=== PATIENT | male | born 1950 | race Caucasian/White ===

== ENCOUNTER 2020-06-18 20:54 | Inpatient (IN) | payer MEDICARE ==
[~2020-06-18] VITALS: Ht 167.6 cm; Wt 72.6 kg
[2020-06-19 05:15] LABS: HEMOGLOBIN 7.8 gm/dl (14.0-17.5); RED BLOOD COUNT 2.9 M/UL (4.20-5.50)
[2020-06-19 12:59] LABS: HEMOGLOBIN 7.7 gm/dl (14.0-17.5)
--- NOTE | 2020-06-19 20:22 | NUR ---
ASSESSMENT COMPLETE. LEFT LOWER EXTREMITY WOUND OPEN TO AIR . PREVIOUSLY APPLIED STERI-STRIPS SATURATED WITH BLOOD. DRESSING REAPPLIED TO RIGHT LOWER LEG , WOUND COVERED WITH NON-ADHERING DRESSING ANG WRAPPED WITH CLEAN GAUZE. LEFT FOOT FOOT WOUND OPEN TO AIR . AREA COVERED WITH NON-ADHERING DRESSING AND SECURED WITH CLEAN GAUZE. PATIENT REMAINS UNCOOPERATIVE ,PULLING AT MEDICAL MONITORING EQUPMENT. SITTER AT BEDSIDE . TITRATING LEVOPHED DRIP TO MAINTAIN MAP OF 60.
[2020-06-19 21:31] LABS: HEMOGLOBIN 6.7 gm/dl (14.0-17.5)
--- NOTE | 2020-06-19 23:58 | NUR ---
SPOKE WITH Lisa CHEO , WHO WAS LISTED SALES BRANCH MANAGER. STATES HE IS UNAWARE OF ANY FAMILY AND KNOW NOTHING ABOUT SPECIFIC MEDICAL BACKGROUND.
[2020-06-20 04:40] LABS: HEMOGLOBIN 8.6 gm/dl (14.0-17.5); RED BLOOD COUNT 3.17 M/UL (4.20-5.50); WHITE BLOOD COUNT 9.9 K/UL (4.5-11.0)
[2020-06-20 13:15] LABS: HEMOGLOBIN 8.7 gm/dl (14.0-17.5)
--- NOTE | 2020-06-21 01:08 | NUR ---
MIDNIGHT BMP RESULTED . SODIUM IS 143. NO CHANGE IN IVF REQUIRED PER ORDER.
[2020-06-21 05:18] LABS: HEMOGLOBIN 9.1 gm/dl (14.0-17.5); RED BLOOD COUNT 3.31 M/UL (4.20-5.50); WHITE BLOOD COUNT 8.2 K/UL (4.5-11.0)
[2020-06-22 05:34] LABS: HEMOGLOBIN 7.3 gm/dl (14.0-17.5)
[2020-06-22 05:47] LABS: RED BLOOD COUNT 2.66 M/UL (4.20-5.50); WHITE BLOOD COUNT 5.7 K/UL (4.5-11.0)
[2020-06-22 22:56] LABS: HEMOGLOBIN 7.3 gm/dl (14.0-17.5)
--- NOTE | 2020-06-23 03:17 | NUR ---
TUBE FEEDS TURNED OFF DUE TO THE PATIENT HAVING MULTIPLE EPISODES OF EMESIS. WILL CONTINUE TO MONITOR.
[2020-06-23 04:07] LABS: RED BLOOD COUNT 2.86 M/UL (4.20-5.50); WHITE BLOOD COUNT 5.3 K/UL (4.5-11.0)
[2020-06-24 04:04] LABS: HEMOGLOBIN 7.4 gm/dl (14.0-17.5); RED BLOOD COUNT 2.8 M/UL (4.20-5.50); WHITE BLOOD COUNT 4.7 K/UL (4.5-11.0)
[2020-06-25 04:05] LABS: WHITE BLOOD COUNT 4.8 K/UL (4.5-11.0)
[2020-06-25 04:20] LABS: HEMOGLOBIN 9.8 gm/dl (14.0-17.5); RED BLOOD COUNT 3.42 M/UL (4.20-5.50)
[2020-06-25 04:27] LABS: BUN/CREATININE RATIO 15 (0-10)
--- NOTE | 2020-06-25 13:49 | NUR ---
CHANGED/CLEANED CENTRAL LINE DRESSING. CHANGED/CLEANED BIATERAL LEG DRESSINGS.
[2020-06-26 04:00] LABS: HEMOGLOBIN 9.1 gm/dl (14.0-17.5); RED BLOOD COUNT 3.25 M/UL (4.20-5.50); WHITE BLOOD COUNT 4.7 K/UL (4.5-11.0)
[2020-06-26 04:30] LABS: BUN/CREATININE RATIO 12 (0-10)
--- NOTE | 2020-06-26 18:26 | NUR ---
DRESSING CHANGE DONGE BILATERALLY WITH SILVADEEN AND ABD PADS AND CURLEX
[2020-06-27 05:39] LABS: HEMOGLOBIN 8.9 gm/dl (14.0-17.5); RED BLOOD COUNT 3.1 M/UL (4.20-5.50); WHITE BLOOD COUNT 4.8 K/UL (4.5-11.0)
[2020-06-27 05:56] LABS: BUN/CREATININE RATIO 10 (0-10)
--- NOTE | 2020-06-27 18:34 | NUR ---
PATIENT HAD BP OF150/100 DR. JONES NOTIFIED AND STATED SHE WOULD PUT IN SOMETHING FOR BERTA DICKSON.
[2020-06-28 07:06] LABS: HEMOGLOBIN 8.6 gm/dl (14.0-17.5); RED BLOOD COUNT 2.99 M/UL (4.20-5.50); WHITE BLOOD COUNT 4.3 K/UL (4.5-11.0)
--- NOTE | 2020-06-28 07:26 | NUR ---
SITTER FOR PATIENT DC LAST NIGHT. CALLED THIS MORNING TO HOUSE AND REQUESTED SITTER. HOUSE SAID SITTER SAID PATIENT DIDN'T NEED SITTER AND THEY WOULD PASS MESSAGE ALONG TO DAY SHIFT SENIOR SECURITY ARCHITECT THAT NURSE HAD REQUESTED A SITTER FOR DAYSHIFT.
[2020-06-28 07:30] LABS: BUN/CREATININE RATIO 10 (0-10)
--- NOTE | 2020-06-28 19:49 | NUR ---
DRESSING CHANGE DONE FOR IJ AND LEGS. TWO TEGADERMS WITH ANTI BACTERIAL PATCHES AND CHLORHEXADINE USED ON IJ. NON ANDHERENT PADS AND SILVADEEN APPLIED AND HELD IN PLACE WITH GAUZE AND TAPE. PATIENT TOLERATED WELL.
--- NOTE | 2020-06-28 19:51 | NUR ---
TALHA HAS DOBHOFF TUBE INSERTED AND CONTINUOUS FEEDING AT 5. PATIENT HAD NOT TOLERATED AN INCREASE AND HAD HAD A RESIDUAL OF 35. THE PATIENT TOLERATED THE TUBE FEEDING DURING MY SHIFT AT 5, PATIENTS RATE WAS INCREASED BY 10 AT 16:30 UP TO 15 PER ORDER. INFORMATION WAS PASSED ALONG IN REPORT TO TERRESTRIAL ECOLOGIST.
[2020-06-29 05:46] LABS: BUN/CREATININE RATIO 6 (0-10)
[2020-06-29 14:15] LABS: VITAMIN E(ALPHA TOCOPHEROL) 3.4 mg/L (9.0-29.0); VITAMIN E(GAMMA TOCOPHEROL) 0.2 mg/L (0.5-4.9)
[2020-06-30 03:50] LABS: BUN/CREATININE RATIO 4 (0-10)
[2020-07-01 04:07] LABS: BUN/CREATININE RATIO 5 (0-10)
--- NOTE | 2020-07-01 17:29 | NUR ---
PATIENT NOTED TO PULL OUT RECTAL TUBE AT THIS TIME. SHARYN AWARE. SHE STATES THAT IT IS FINE TO LEAVE OUT AT THIS TIME.
--- NOTE | 2020-07-02 00:47 | NUR ---
234 WENT TO MY HOURLY ROUNDS ON PATIENT AND FOUND THE PATIENT IN THE FLOOR. ASSESSED PATIENT FOR ANY NEW INJURIES, NONE NOTED. ASKED THE PATIENT IF HE HURT ANYWHERE, THE PATIENT STATED NO. CENTRAL LINE NOTED TO BE OUT, APPLIED PRESSURE DRESSING. 2349 NOTIFIED MARIZA DISPATCHER CLERK OF FALL. [address] FINNEGAN OF FALL. DR FINNEGAN STATED "NO NEW ORDERS FOR NOW, WE WILL KEEP A CLOSE EYE ON HIM THOUGH AND MONITOR HIM." 0000 GOT THE PATIENT BACK INTO BED, CLEANED HIM UP, PUT A STRIP ALARM UNDER HIM, BED ALARM TURNED ON, YELLOW GOWN AND SOCKS APPLIED. SITTER IS NOW AT BEDSIDE FOR 1:1 MONITORING.
[2020-07-02 04:59] LABS: HEMOGLOBIN 9.3 gm/dl (14.0-17.5); RED BLOOD COUNT 3.15 M/UL (4.20-5.50); WHITE BLOOD COUNT 5.2 K/UL (4.5-11.0)
[2020-07-02 05:22] LABS: BUN/CREATININE RATIO 4 (0-10)
--- NOTE | 2020-07-02 14:36 | NUR ---
PATIENT YELLS OUT REPEATEDLY WHILE HE IS AWAKE. HE SPEECH IS GARBLED BUT HE DOESN'T SEEM TO BE CONFUSED ABOUT WHAT IS GOING ON AND HE IS CONVERSATIONALLY APPROPRIATE. HE 'PICKS' AT ALL OF HIS LINES AND WHEN I ROUNDED THIS AM HE HAD CHEWED THROUGH OR BROKEN HIS IV TUBING AND TIED HIS DOBHOFF IN A KNOT. WE CHANGED THE IV TUBING AND FIXED THE DOBHOFF TUBING AND ARE CLOSELY MONITORING PATIENT WHILE PREDICTING HIS NEEDS TO AVOID ANY FURTHER ISSUES.
--- NOTE | 2020-07-03 04:30 | NUR ---
PATIENT NOW HAS A SITTER!!!
--- NOTE | 2020-07-03 04:30 | NUR ---
AT 0315, FOUND PATIENT WITH IV LINE WRAPPED AROUND HIS WRIST. HE HAD BIT THROUGH THE TUBING. DAMAGED TUBING DISCARDED AND REMAINING SL FLUSHED EASILY WITH 0 S/S OF INFILTRTION NOTED. SL WRAPPED WITH CLOVIS. UPON RETURNING TO THE ROOM AT 0325, THE PATIENT WAS FOUND TURNED SIDEWAYS IN THE BED WITH HIS FEET ON THE IV PUMP, ATTEMPTING TO PULL THE TUBE FEED TUBING FROM THE [place]. WHILE TRYING TO HAVE THE PATIENT RELEASE THE TUBING, IT BROKE FROM THE MACHINE. CALLED FOR SENIOR POLICY ADVISOR TO SIT WITH PATIENT. WHILE WAITING FOR SENIOR POLICY ADVISOR, THE PATIENT IS FLAILING HIS ARMS AND LEGS AND THEN PROCEEDS TO GRAB HIS SL, JERK IT OUT OF HIS ARM AND THROW IT IN THE FLOOR. SENIOR POLICY ADVISOR IN ROOM WITH PATIENT AND THIS RN CALLING THE RECREATIONAL LEADER FOR HELP!
--- NOTE | 2020-07-04 13:30 | NUR ---
TUBE FEEDING ADJUSTED TO 45 ML/HR, TOLERATES WELL.
[2020-07-05 11:23] LABS: BUN/CREATININE RATIO 4 (0-10)
[2020-07-06 06:49] LABS: HEMOGLOBIN 8.3 gm/dl (14.0-17.5); RED BLOOD COUNT 2.82 M/UL (4.20-5.50)
[2020-07-06 07:16] LABS: BUN/CREATININE RATIO 5 (0-10)
[2020-07-08 03:53] LABS: HEMOGLOBIN 8.6 gm/dl (14.0-17.5); RED BLOOD COUNT 2.86 M/UL (4.20-5.50); WHITE BLOOD COUNT 4.7 K/UL (4.5-11.0)
[2020-07-08 06:58] LABS: BUN/CREATININE RATIO 5 (0-10)
[2020-07-10 03:08] LABS: HEMOGLOBIN 9.5 gm/dl (14.0-17.5); WHITE BLOOD COUNT 5.4 K/UL (4.5-11.0)
[2020-07-10 03:10] LABS: RED BLOOD COUNT 3.19 M/UL (4.20-5.50)
[2020-07-10 03:42] LABS: BUN/CREATININE RATIO 7 (0-10)
[2020-07-14] MEDS ORDERED: VITAMIN E400 UNI3 PO (10:53)
[2020-07-14] MEDS ORDERED: VITAMIN C 500500 MG PO (10:53)
[2020-07-14] MEDS ORDERED: VITAMIN A10000 UNI2 PO (10:53)
[2020-07-14] MEDS ORDERED: FOLIC ACID 1 MG1 MG PO (10:53)
[2020-07-14] MEDS ORDERED: AMLODIPINE BESYL5 MG PO (10:53)
[2020-07-14] MEDS ORDERED: VITAMIN B-1100 M1 PO (10:53)
--- NOTE | 2020-07-14 14:40 | NUR ---
REPORT CALLED TO BRENNAN AT [facility] IN [place], [place].
--- NOTE | 2020-07-14 15:19 | NUR ---
RN SCHEDULED AMBULANCE SERVICE TO TRANSPORT PATIENT TO [facility] IN [place], [place].
== END 2020-07-14 17:29 | DRG 871 ==
LOC: CCU 20:54 → M/S 20:54 → ZEROF 06-29 13:52 → M/S 07-06 13:01
PROVIDERS: Family Medicine; Internal Medicine; Internal Medicine Nephrology; ADMIT Internal Medicine
PROC: 30233N1 Transfusion of Nonautologous Red Blood Cells into Peripheral Vein, Percutaneous Approach (ICD-10-PCS; principal; 2020-06-19)
PROC: B24BZZ4 Ultrasonography of Heart with Aorta, Transesophageal (ICD-10-PCS; 2020-06-20)
DX: A41.9 Sepsis, unspecified organism (principal); R65.21 Severe sepsis with septic shock; G93.41 Metabolic encephalopathy; E43 Unspecified severe protein-calorie malnutrition; R57.1 Hypovolemic shock; M31.1 Thrombotic microangiopathy; N17.0 Acute kidney failure with tubular necrosis; E87.2 Acidosis; L97.929 Non-pressure chronic ulcer of unspecified part of left lower leg with unspecified severity; L03.311 Cellulitis of abdominal wall; M62.82 Rhabdomyolysis; L03.115 Cellulitis of right lower limb; E87.0 Hyperosmolality and hypernatremia; Z20.822 Contact with and (suspected) exposure to COVID-19; N18.30 Chronic kidney disease, stage 3 unspecified; E78.00 Pure hypercholesterolemia, unspecified; N34.2 Other urethritis; D63.1 Anemia in chronic kidney disease; R13.10 Dysphagia, unspecified; E88.09 Other disorders of plasma-protein metabolism, not elsewhere classified; I87.2 Venous insufficiency (chronic) (peripheral); F79 Unspecified intellectual disabilities; R62.7 Adult failure to thrive; E87.6 Hypokalemia; G30.9 Alzheimer's disease, unspecified; T36.8X5A Adverse effect of other systemic antibiotics, initial encounter; F02.80 Dementia in other diseases classified elsewhere, unspecified severity, without behavioral disturbance, psychotic disturbance, mood disturbance, and anxiety; Z74.01 Bed confinement status; Z68.25 Body mass index [BMI] 25.0-25.9, adult
CPT/HCPCS: ECHO; 36415; 36430; 36600; 71045; 74018; 76705; 80048; 80053; 80202; 82140; 82180; 82533; 82550; 82553; 82607; 82746; 82803; 83540; 83550; 83605; 83735; 84075; 84132; 84439; 84443; 84446; 84484; 84590; 85014; 85018; 85025; 85027; 85610; 85730; 86850; 86900; 86901; 86920; 87040; 87070; 87205; 92526; 92610; 93005; 93306; 94640; 94664; 94760; 97161; 97167; 97530; 97530-GP-CQ; 97535; A6212; J1450; J1650; J1940; J2405; J2543; J3370; J3411; J3480; J7030; J7040; J7050; J7070; P9016; P9047; U0002